=== PATIENT | female | born 1930 | race Two or more races ===

== ENCOUNTER 2018-03-24 18:38 | Observation (INO) | payer OTHER ==
--- NOTE | 2018-03-24 19:50 | EDPHY ---
H & P Stated Complaint: difficulty moving L leg since yesterday Time Seen by Provider: 03/24/18 18:54 HPI/ROS: CHIEF COMPLAINT: Left leg weakness HISTORY OF PRESENT ILLNESS: The patient presents to the emergency department with complaints of left leg weakness for the past day. She reportedly developed symptoms last night. She denies any paresthesias. She denies any complaints of low back pain. She reports similar episode 5 months ago in [place] which was simply treated with an IM injection into her gluteal area. The patient denies prior history of back surgery. She denies any headache, vision loss, dysarthria, speech difficulties, facial weakness or upper extremity weakness. REVIEW OF SYSTEMS: A comprehensive 10 point review of systems is otherwise negative aside from elements mentioned in the history of present illness. Source: Patient - Personal History Current Tetanus/Diphtheria Vaccine: No Current Tetanus Diphtheria and Acellular Pertussis (TDAP): No - Medical/Surgical History Hx Asthma: No Hx Chronic Respiratory Disease: No Hx Diabetes: No Hx Cardiac Disease: No Hx Renal Disease: No Hx Cirrhosis: No Hx Alcoholism: No Hx HIV/AIDS: No Hx Splenectomy or Spleen Trauma: No Other PMH: osteop - Social History Smoking Status: Never smoked - Physical Exam Exam: General Appearance: Elderly female, no acute distress Eyes: Pupils equal and round no pallor or injection ENT, Mouth: Mucous membranes moist Respiratory: There are no retractions, lungs are clear to auscultation Cardiovascular: Regular rate and rhythm Gastrointestinal: Abdomen is soft and nontender, no masses, bowel sounds normal Neurological: Alert and oriented x4, 5/5 strength noted throughout with the exception of her left hip which demonstrates 3/5 weakness with flexion. Skin: Warm and dry, no rashes Musculoskeletal: Neck is supple nontender Extremities: symmetrical, full range of motion Psychiatric: Patient is oriented X 3, there is no agitation Constitutional: Initial Vital Signs Temperature (C) 36.7 C 03/24/18 18:55 Heart Rate 81 03/24/18 18:55 Respiratory Rate 16 03/24/18 18:55 Blood Pressure 170/88 H 03/24/18 18:55 O2 Sat (%) 91 L 03/24/18 18:55 O2 Delivery Mode Room Air Allergies/Adverse Reactions: No Known Allergies Allergy (Unverified 03/24/18 18:54) Home Medications: Medication Instructions Recorded NK [No Known Home Meds] 03/24/18 Medical Decision Making ED Course/Re-evaluation: The patient presents to the ED after she developed acute weakness involving her left leg at 12 o'clock in the evening. She has a prior history of the symptoms 5 months ago which resolved with pain medications. Patient was noted to have weakness with her left hip flexors. The remainder of her neurologic examination was unremarkable. The patient will undergo an MRI of her lumbar spine for evaluation of her left leg weakness. The patient will be turned over to Dr. Naveen Stevens at 9:00 p.m. pending that study. Differential Diagnosis: Differential diagnosis considered includes sciatica, lumbar disc herniation, peripheral neuropathy Departure - Departure Referrals: NONE *PRIMARY CARE P,. [Primary Care Provider] - As per Instructions
[2018-03-24] MEDS ORDERED: methylPREDNISolone SOD SUCC 125 MG/2 ML VIAL IVP ONE (21:20)
[2018-03-24] MEDS ORDERED: ACETAMINOPHEN 325 MG TAB PO PRN (21:57)
[2018-03-24] MEDS ORDERED: ONDANSETRON 4 MG/2 ML VIAL IVP PRN (21:57)
[2018-03-24] MEDS ORDERED: ONDANSETRON DISINTEGRATING 4 MG TAB PO PRN (21:57)
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
[2018-03-24] MEDS ORDERED: hydrALAZINE 25 MG TAB PO PRN (23:16)
[2018-03-25] MEDS ORDERED: PNEUMOC 13-VAL CONJ-DIP CRM/PF 0.5 ML SYR IM ONE (00:30)
[2018-03-25 05:13] LABS: PLATELET COUNT 195 10^3/uL (150-400)
--- NOTE | 2018-03-25 08:35 | HOSPPROG ---
Hospitalist Progress Note Assessment/Plan: Patient is an 87 yo F w/ hx of osteoporosis presents with L leg weakness. Today is my first encounter w the patient, chart reviewed. *left leg weakness -MRI shows significant stenosis on multi-levels -PT and OT -hx of spine surgeries -she is ambulating well in the room, says she is feeling much better *htn -uncontrolled -add amlodipine *osteoporosis *plan: await for PT and OT to see Subjective: Reny said she is feeling fine (met w her via the associate professor of biblical studies) Objective: Vital Signs Temp Pulse Resp BP Pulse Ox 36.6 C 96 14 180/103 H 94 03/25/18 07:35 03/25/18 07:35 03/25/18 07:35 03/25/18 07:35 03/25/18 07:35 Laboratory Results 03/25/18 04:29 03/25/18 04:29 03/24/18 03/25/18 03/26/18 05:59 05:59 05:59 Intake Total 250 Output Total 600 Balance -350 - Physical Exam Constitutional: no apparent distress, appears nourished, not in pain Eyes: PERRL Ears, Nose, Mouth, Throat: hearing normal Cardiovascular: regular rate and rhythym Respiratory: no respiratory distress Gastrointestinal: normoactive bowel sounds Skin: warm Musculoskeletal: generalized weakness Neurologic: AAOx3 Psychiatric: interacting appropriately ICD10 Worksheet Patient Problems: Problems Problem Status Onset Left leg weakness Acute - ICD10 Problem Qualifiers (1) Left leg weakness
[2018-03-25] MEDS ORDERED: HEPARIN 5,000 UNIT/0.5 ML INJ SC SCH (09:00)
[2018-03-25 15:08] VITALS: BP 127/68
--- NOTE | 2018-03-25 16:01 | ASMTLACE ---
LACE Length of stay for Answers: 1 day current admission Acuity / Level of Answers: No Care: Did the patient have an inpatient admission? Comorbidities - select Answers: Other Notes: osteoporosis all that apply # of Emergency department Answers: 1-2 visits in the last 6 months Score: 3 Date Signed: 03/25/2018 04:00 PM Electronically Signed By:Delores Sevilla RN
--- NOTE | 2018-03-25 16:07 | ASMTCMCOM ---
CM Note CM Note Notes: Spoke w/pt and family, PT/OT recommend home care. Family agreeable, CM called and spoke w/Sarah at [facility] who can accept and will provide a motion picture narrator to assist. Pt lives with dtr Megan and son. DC Plan: Homecare/[facility] (PT/OT) Date Signed: 03/25/2018 04:06 PM Electronically Signed By:Delores Sevilla RN
--- NOTE | 2018-03-25 16:22 | ASMTDCNOTE ---
Case Management Discharge Discharge Order Complete? Answers: Yes Patient to Obtain Answers: Independently Medications Transportation Arranged Answers: Family/Friends Family Notified Answers: Yes Discharge Comments Notes: D/w GIS PROGRAMMER, final orders faxed. Sarah at [facility] notified and is working on getting an envelope sealer, RN to call report. Date Signed: 03/25/2018 04:21 PM Electronically Signed By:Delores Sevilla RN
--- NOTE | 2018-03-25 16:25 | PDIAF ---
- Diagnosis Diagnosis: left leg weakness Code Status: Full Code - Medication Management Discharge Medications: Medications to Continue on Transfer Acetaminophen [Tylenol 325mg (*)] 650 mg PO Q4HRS PRN tab 03/25/18 [Last Taken Unknown] Acido Alendronico 70 mg PO SA@0600 03/25/18 [Last Taken 03/20/18] Aspirin [Aspirin 81mg (*)] 81 mg PO DAILY@03/25/18 [Last Taken 03/24/18] Caltrate 600+D 1 tab PO DAILY 03/25/18 [Last Taken Unknown] Kriadex 0.5 mg PO HS 03/25/18 [Last Taken Unknown] Pregabalina 75 mg PO HS 03/25/18 [Last Taken Unknown] Super B Complex With Folic & C 1 tab PO DAILY@03/25/18 [Last Taken Unknown] amLODIPine BESYLATE [Norvasc 2.5 mg (*)] 2.5 mg PO DAILY #30 tab 03/25/18 [Last Taken Unknown] Discharge Medications: Refer to the Discharge Home Medication list for PRN reason. - Orders Services needed: Home Care, Physical Therapy, Occupational Therapy Home Care Face to Face: I certify that this patient was under my care and that I had the required [id number] encounter meeting the encounter requirements on the discharge day. My findings support the fact that the patient is homebound as defined in Home Care Face to Face Continued: CMS Chapter 7 Medicare Benefits Manual 30.1.1 , The condition of the patient is such that there exists a normal inability to leave home and consequently, leaving home would require a considerable and taxing effort. Diet Recommendation: no restrictions on diet Diet Texture: Regular Texture Diet Additional Instructions: your prescription for Amlodipine was sent to [facility] on follow up with your doctor in regards to your back and high blood pressure if you develop any incontinence of urine or stool; return to the ER home care will f/u with you Curry receta para Amlodipine se digna a [facility] en . Marilee de seguimiento con curry a eso de tu espalda y presion дмитрий. Si desarollas incontenencia de orina u excremento; regresar a la donna de Emergencia. Atencion domiciliaria haran seguimiento con usted. - Follow Up Care Current Providers and Referrals: NONE *PRIMARY CARE P,. [Primary Care Provider] - As per Instructions [facility],. [Clinic] -
--- NOTE | 2018-03-25 17:07 | GDS ---
[f rep st] DISCHARGE SUMMARY DISCHARGE DIAGNOSES: 1. Left leg weakness. 2. Hypertension. 3. Osteoporosis. HISTORY OF PRESENT ILLNESS: Briefly, the patient is an 87-year-old female who presented with left leg weakness. She had a lumbar spine MRI performed that showed severe acquired central canal stenosis at L3-L4 with right neural foraminal stenosis. She has [id number] acquired central canal stenosis at L5-S1 with left neural foraminal stenosis. She has a small extended disk herniation extending superiorly from L1-L2 with a mild mass effect on the ventral thecal sac, and she has remote compression fractures of T12, L2, and L3 vertebral bodies. She was seen and evaluated by Physical therapy. Her left leg weakness went away. The patient does not at this time want any type of surgical intervention. I shared with the family and the patient that she may be a candidate for steroid injection, but she is feeling markedly better and would like to be discharged home. HOSPITAL COURSE: 1. Left leg weakness. She was seen and evaluated by Physical Therapy who recommended she have home care. This has been ordered. Recommend they can consider further evaluation if she starts having weakness again. She has a history of spine surgeries and would prefer to avoid any surgical interventions. 2. Hypertension. This has been uncontrolled. She has been started on amlodipine with good results. I have recommended that she follow up with her doctor at [facility]. 3. Osteoporosis. To continue her supplementation at home as she is done. DISCHARGE CONDITION: Stable. Blood pressure is 127/68, heart rate of 93, respiratory rate of 14, O2 sats on room air 92%, temperature is 36.9 Celsius. DISCHARGE MEDICATIONS: Please see the EMR. DISCHARGE INSTRUCTIONS: 1. To continue her amlodipine. 2. Follow up with her doctor in regard to her back and high blood pressure. 3. If she develops any incontinence of urine or stool, return to the ER. 4. Home Care will follow up with her. 5. Of note, all of her discharge summary notes were translated to Citizen [place]. /[id number]/MODL MTDD
[2018-03-26] MEDS ORDERED: amLODIPine BESYLATE 5 MG TAB PO SCH (09:00)
--- NOTE | 2018-03-26 10:51 | ASDISCHSUM ---
Discharge Information Plan Status:Home with Home Health Medically Cleared to Leave: Discharge Date:03/25/2018 05:18 PM D/C Disposition:Home Health Service ADT D/C Disposition:Home, Routine, Self-Care Projected Discharge Date:03/25/2018 11:00 AM Transportation at D/C:Family Discharge Delay Reason: Follow-Up Date:03/25/2018 11:00 AM Discharge Slot: Final Diagnosis: Placement Information Referral Type:*Home Health Care Services Referral ID:[id number] Provider Name:[facility] Address 1:[address] Address 2: City:[place] Selection Factors: State:[place] Patient Contact Information Contact Name:RUSSELL Relationship:Daughter Address:[address] [place] [address] Work Phone: [facility] Alternate Phone: State/Zip Code:[place] [address] Email: Financial Information Financial Class:Medicare Primary Plan Desc:MEDICARE OUTPATIENT Primary Plan Number:[id number] Secondary Plan Desc: Secondary Plan Number: Assessment Information LACE LACE Length of stay for Answers: 1 day current admission Acuity / Level of Answers: No Care: Did the patient have an inpatient admission? Comorbidities - select Answers: Other Notes: osteoporosis all that apply # of Emergency department Answers: 1-2 visits in the last 6 months Score: 3 Date Signed: 03/25/2018 04:00 PM Electronically Signed By:Delores Sevilla RN [facility] Progress Note CM Note CM Note Notes: Spoke w/pt and family, PT/OT recommend home care. Family agreeable, CM called and spoke w/Sarah at [facility] who can accept and will provide a associate field service engineer to assist. Pt lives with dtr Megan and son. DC Plan: Homecare/[facility] (PT/OT) Date Signed: 03/25/2018 04:06 PM Electronically Signed By:Delores Sevilla RN Case Management Discharge Plan Note Case Management Discharge Discharge Order Complete? 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 Sarah at [facility] notified and is working on getting an interpreter and translator, HETAL to call report. Date Signed: 03/25/2018 04:21 PM Electronically Signed By:Delores Sevilla RN Intervention Information Intervention Type:DENT-Refused Date of Service:03/25/2018 10:20 AM Patient Type:Observation Staff Member:Christine Ratliff Hours: Discipline: Severity: Comment:Using the help of the [place] interpre agusto, the patient stated she did not have a secondary insurance - Only her Part A & B Medicare. Since she is under observation status, I explained she is responsible for 20% of her medical services. Reny wished to not sign the Medicare form at this time. She asked that I leave a copy for her daughter.
--- NOTE | 2018-03-26 16:00 | CPEKG ---
Test Reason : OPEN Blood Pressure : / mmHG Vent. Rate : 088 BPM Atrial Rate : 087 BPM P-R Int : 158 ms QRS Dur : 069 ms QT Int : 362 ms P-R-T Axes : 046 -16 032 degrees QTc Int : 438 ms Sinus rhythm Borderline left axis deviation Abnormal R-wave progression, early transition Confirmed by Deep Milan ([id number]) on 03/26/2018 4:00:39 PM Referred By: Confirmed By:Deep Milan
== END 2018-03-25 17:18 | disposition home health service (06) ==
LOC: EDBD 21:32 → F3E 22:48
PROVIDERS: ADMIT Internal Medicine; ATTEND Internal Medicine
DX: M48.061 Spinal stenosis, lumbar region without neurogenic claudication (principal); M62.81 Muscle weakness (generalized); I10 Essential (primary) hypertension; M81.0 Age-related osteoporosis without current pathological fracture
CPT/HCPCS: 72148; 90471; 93005; 96372; 96374; 97116; 97161; 97165; 97535; 99285; G0378; G8978; G8979; G8980; G8987; G8988; J1644; J2930

== ENCOUNTER 2018-04-05 10:57 | Observation (INO) | payer OTHER ==
--- NOTE | 2018-04-05 12:16 | EDPHY ---
H & P Time Seen by Provider: 04/05/18 11:48 HPI/ROS: CHIEF COMPLAINT: Left leg pain and weakness HISTORY OF PRESENT ILLNESS: Patient was admitted to the hospital from 03/24- of this year MRI showing spinal stenosis at L3-4 as well as left-sided disc herniation. She did well without intervention but her symptoms recurred last night and this morning. She complains of pain and weakness in her left foot and leg which is severe in any position which is not supine. She can't walk today. Not associated with incontinence or bowel or bladder symptoms or fever or chills. No fall injury or trauma. REVIEW OF SYSTEMS: Eye: no change in vision ENT: no sore throat Cardiac: no chest pain or syncope Pulmonary: no cough or SOB Abdomen: no vomiting, diarrhea, abdominal pain Musculoskeletal: Back pain with standing Skin: no rash Neuro: As in the HPI Constitutional: no fever : no urinary symptoms A comprehensive 10 point review of systems is otherwise negative aside from elements mentioned in the history of present illness. PAST MEDICAL HISTORY: Osteoporosis and spinal stenosis Social history: Here with her daughter and granddaughter, who is primarily [place]-speaking, history with hand model Judith Thrasher in the room personally. General Appearance: Alert and conversant, cooperative. Eyes: No scleral icterus. ENT, Mouth: Normal mucous membranes. Respiratory: Normal respiratory effort, breath sounds equal, lungs are clear to auscultation. Cardiovascular: Regular rate and rhythm. Gastrointestinal: Abdomen is soft and non tender. Neurological: Alert, face symmetric. She has downgoing toes bilaterally. 2+ right reflex patella and 1+ left. No clonus. Straight leg raising on the left leg causes pain with any elevation. She has 5/ 5 plantar flexion and 4+ out of 5 dorsiflexion on the left foot. Skin: Some darker skin or ecchymosis over the dorsum of the left foot but no bony tenderness and no blisters eschar warmth or lymphangitis. Musculoskeletal: No peripheral edema. Psychiatric: Not agitated. Emergency Department course/MDM: Worsening left leg weakness and pain with spinal stenosis, requires admission, consideration for steroid injection or Neurosurgery consultation. Smoking Status: Never smoked Constitutional: Initial Vital Signs Temperature (C) 36.9 C 04/05/18 11:07 Heart Rate 80 04/05/18 11:07 Respiratory Rate 18 04/05/18 11:07 Blood Pressure 117/70 04/05/18 11:07 O2 Sat (%) 93 04/05/18 11:07 O2 Delivery Mode Room Air Allergies/Adverse Reactions: No Known Allergies Allergy (Verified 04/05/18 13:48) Home Medications: Medication Instructions Recorded Acetaminophen [Tylenol 325mg (*)] 650 mg PO Q4HRS PRN tab 03/25/18 Acido Alendronico 70 mg PO SA@0600 03/25/18 Aspirin [Aspirin 81mg (*)] 81 mg PO DAILY@03/25/18 Caltrate 600+D 1 tab PO DAILY 03/25/18 Kriadex 0.5 mg PO HS 03/25/18 Pregabalina 75 mg PO HS 03/25/18 Super B Complex With Folic & C 1 tab PO DAILY@03/25/18 amLODIPine BESYLATE [Norvasc 2.5 2.5 mg PO DAILY #30 tab 03/25/18 mg (*)] Medical Decision Making Consult/Admit Bed Type: [place] [id number] - Data Points Laboratory Results: Laboratory Results 04/05/18 12:30 04/05/18 12:30 04/05/18 04/05/18 04/05/18 12:30 12:30 12:30 WBC 6.00 10^3/uL 10^3/uL (3.80-9.50) RBC 3.94 10^6/uL L 10^6/uL (4.18-5.33) Hgb 12.8 g/dL g/dL (12.6-16.3) Hct 38.2 % % (38.0-47.0) MCV 97.0 fL fL (81.5-99.8) MCH 32.5 pg pg (27.9-34.1) MCHC 33.5 g/dL g/dL (32.4-36.7) RDW 14.1 % % (11.5-15.2) Plt Count 227 10^3/uL 10^3/uL (150-400) MPV 9.4 fL fL (8.7-11.7) Neut % (Auto) 59.0 % % (39.3-74.2) Lymph % (Auto) 30.2 % % (15.0-45.0) [place] % (Auto) 8.2 % % (4.5-13.0) Eos % (Auto) 2.0 % % (0.6-7.6) Baso % (Auto) 0.3 % % (0.3-1.7) Nucleat RBC Rel Count 0.0 % % (0.0-0.2) Absolute Neuts (auto) 3.54 10^3/uL 10^3/uL (1.70-6.50) Absolute Lymphs (auto) 1.81 10^3/uL 10^3/uL (1.00-3.00) Absolute Monos (auto) 0.49 10^3/uL 10^3/uL (0.30-0.80) Absolute Eos (auto) 0.12 10^3/uL 10^3/uL (0.03-0.40) Absolute Basos (auto) 0.02 10^3/uL 10^3/uL (0.02-0.10) Absolute Nucleated RBC 0.00 10^3/uL 10^3/uL (0-0.01) Immature Gran % 0.3 % % (0.0-1.1) Immature Gran # 0.02 10^3/uL 10^3/uL (0.00-0.10) PT 13.0 SEC SEC (12.0-15.0) INR 0.96 (0.83-1.16) APTT 26.1 SEC SEC (23.0-38.0) Sodium 139 mEq/L mEq/L (135-145) Potassium 4.2 mEq/L mEq/L (3.3-5.0) Chloride 107 mEq/L mEq/L (97-110) Carbon Dioxide 27 mEq/l mEq/l (22-31) Anion Gap 5 mEq/L L mEq/L (8-16) BUN 27 mg/dL H mg/dL (7-23) Creatinine 0.6 mg/dL mg/dL (0.6-1.0) Estimated GFR > 60 Glucose 129 mg/dL H mg/dL (70-100) Calcium 8.6 mg/dL mg/dL (8.5-10.4) Departure - Departure Disposition: [facility] In[facility] Acute Clinical Impression: Left leg weakness Spinal stenosis Qualifiers: Spinal region: unspecified Qualified Code(s): M48.00 - Spinal stenosis, site unspecified Condition: Fair
[2018-04-05 12:39] LABS: PLATELET COUNT 227 10^3/uL (150-400)
[2018-04-05 12:46] LABS: INR 0.96 (0.83-1.16)
[2018-04-05] MEDS ORDERED: IBUPROFEN 200 MG TAB PO PRN (14:03)
[2018-04-05] MEDS ORDERED: ACETAMINOPHEN 325 MG TAB PO PRN (14:03)
[2018-04-05] MEDS ORDERED: ONDANSETRON 4 MG/2 ML VIAL IVP PRN (14:03)
[2018-04-05] MEDS ORDERED: ONDANSETRON DISINTEGRATING 4 MG TAB PO PRN (14:03)
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
[2018-04-05] MEDS ORDERED: PREGABALIN 75 MG CAP PO SCH (21:00)
[2018-04-05] MEDS ORDERED: clonazePAM 0.5 MG TAB PO SCH (21:00)
[2018-04-06] MEDS ORDERED: ENOXAPARIN 40 MG/0.4 ML SYR SC SCH (09:00)
[2018-04-06] MEDS ORDERED: CALCIUM CARB W/VIT D 500 MG TAB PO SCH (09:00)
--- NOTE | 2018-04-06 12:57 | ASMTCASEMG ---
Living Arrangements What is your living Answers: With Child(wong) arrangement? Who do you live with? Type Of Residence What kind of residence do Answers: House you live in? Discharge Plan Comments Coordination Status Comments Notes: Cm spoke to HETAL Bowers regarding d/c POC. Pt is a 87 y/o female admitted for left leg weakness and spinal stenosis. Pt will be getting a spinal injection at some point today. Therapies have been ordered and awaiting recommendations. Needs are TBD at this time. CM to follow. Plan: TBD Date Signed: 04/06/2018 12:56 PM Electronically Signed By:JANNETH Moscoso
[2018-04-06] MEDS ORDERED: TRIAMCINOLONE ACETONIDE 200 MG/5 ML MDV IM ONE (13:51)
[2018-04-06] MEDS ORDERED: IOPAMIDOL (ISOVUE-M 300) 15 ML VIAL ONE (13:51)
[2018-04-06] MEDS ORDERED: MIDAZOLAM 2 MG/2 ML VIAL IVP PRN (14:37)
[2018-04-06] MEDS ORDERED: NALOXONE HCL 0.4 MG/ML INJ IVP PRN (14:37)
[2018-04-06] MEDS ORDERED: MEPERIDINE 25 MG/ML SYR IVP PRN (14:37)
[2018-04-06] MEDS ORDERED: FLUMAZENIL 0.5 MG/5 ML MDV IVP PRN (14:37)
[2018-04-06] MEDS ORDERED: fentaNYL 100 MCG/2 ML INJ IVP PRN (14:37)
[2018-04-06] MEDS ORDERED: MIDAZOLAM 2 MG/2 ML VIAL ONE (14:41)
[2018-04-06] MEDS ORDERED: fentaNYL 100 MCG/2 ML INJ ONE (14:41)
[2018-04-06] MEDS ORDERED: NS 1,000 ML IV SCH (14:45)
[2018-04-06] MEDS ORDERED: LIDOCAINE 1% 300 MG/30 ML SDV ONE (14:53)
--- NOTE | 2018-04-06 15:11 | PDPROPOC ---
Sedation Plan of Care Sedation Plan of Care: vital signs stable, mental status noted, patient educated of risks, benefits, alternatives, patient can tolerate sedation ASA Classification: ASA 2 Planned drugs: fentanyl, midazolam Mallampati Score: Class 2 Mallampati Reference Image: Patient passed 3-3-2 rule?: Yes
--- NOTE | 2018-04-06 15:12 | PDRADPN ---
Radiology Procedure Note Date of Procedure: 04/06/18 Radiologist: Surekha Saeed Anesthesia: IV Sedation Pre-op Diagnosis: BACK PAIN Post-op Diagnosis: SAME Indication: SEVERE SPINAL CANAL STENOSIS Procedure: L4-5 ESCOBAR Inf/Abcess present in the surg proc area at time of surgery?: No
[2018-04-06 16:07] VITALS: BP 125/92
--- NOTE | 2018-04-07 13:00 | PDDCSUM ---
Discharge Summary Discharge Summary: Date of Admission: 04/05/2018 Date of Discharge: 04/06/2018 Consultants: interventional radiology Procedures: epidural spinal injection at L4-5 Discharge Diagnoses: 1. Acute exacerbation of left leg pain and weakness, related to 2. Severe spinal stenosis 3. Osteoporosis 4. HTN Brief Hospital Course: 87yo F with a history of osteoporosis and recent observation admission at this hospital for management of left leg pain/weakness due to spinal stenosis that was managed with oral steroids presented again with acute worsening of left leg pain/weakness and lower back pain. L-spine MRI last admission showed multilevel severe lumbosacral spinal stenosis. Her exam was consistent with weakness/ limited mobility due to severe pain. She was amenable to ESCOBAR and underwent injection of L4-5 with IR. Her symptoms resolved and she had minimal pain and full LLE strength on day of discharge. PT/OT saw her last admission and recommended home with walker, which she has with her. Advised to trial acetaminophen in addition to her home pregabalin for pain control. She is not interested in surgical management. She is on a bisphosphonate for her osteoporosis. Medications: Please refer to EMR. Changes this admission include holding aspirin for 5 days after procedure, otherwise no changes. Follow Up Plan: 1. PCP clinic visit later this week. Consider prescribing prednisone to have on- hand for acute back/leg pain crises. She seems to respond to steroid therapy and this may prevent her from being hospitalized. Physical Exam: Vitals reviewed, normotensive. Alert and oriented. RRR without murmurs on cardiac exam. Lungs clear. Abdomen soft. 5/5 strength in bilateral proximal and distal lower extremities. 1+ bilateral patellar reflexes. No ankle clonus. Down-going toes bilaterally. Sensation to light touch intact in feet.
== END 2018-04-06 18:15 | disposition home or self-care (01) ==
LOC: INTOOBSV 12:44 → F3E 14:19
PROVIDERS: ADMIT Internal Medicine; ATTEND Internal Medicine
DX: M48.061 Spinal stenosis, lumbar region without neurogenic claudication (principal); M62.81 Muscle weakness (generalized); M48.07 Spinal stenosis, lumbosacral region; M51.16 Intervertebral disc disorders with radiculopathy, lumbar region; I10 Essential (primary) hypertension; M81.0 Age-related osteoporosis without current pathological fracture; Z23 Encounter for immunization
CPT/HCPCS: 62323; 90686; 96374; 96375; 99152; 99285; G0008; G0378; J2250; J3010; J3301; Q9967; J1650

== ENCOUNTER 2018-05-02 10:59 | Emergency (ER) | payer OTHER ==
[2018-05-02 11:18] VITALS: BP 150/77
--- NOTE | 2018-05-02 11:58 | EDPHY ---
H & P Stated Complaint: cough, runny nose, high blood pressure Time Seen by Provider: 05/02/18 11:44 HPI/ROS: CHIEF COMPLAINT: Cough, high blood pressure. HISTORY OF PRESENT ILLNESS: The patient is a Kittitian-speaking 87 y/o female arriving with her daughter complaining of a cough and high blood pressure. She developed a cough and cold symptoms yesterday that have been worsening today. She measured her blood pressure at home and found it to be around 170 and became scared. On she was taken off her blood pressure medications. Her daughter has noticed it looks like she's having a hard time breathing at home. Her daughter has been administering DayQuil for symptoms. Patient denies shortness of breath, sore throat, vomiting, diarrhea, headache, abdominal pain, fever. Her flu vaccination is up-to-date. 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 REVIEW OF SYSTEMS: A comprehensive 10 system review of systems is otherwise negative aside from elements mentioned in the history of present illness and medical decision making. Past medical history: osteoporosis, lumbar stenosis, L1-L2 herniation, prior history of pneumonia. Past surgical history: Spinal surgery Family history: Noncontributory Social history: Kittitian-speaking. Daughter at bedside. No tobacco use. PCP: [facility]. Adult Physical: General Appearance: Alert, no acute distress. BP 141/83 Eyes: Pupils equal and round, no conjunctival injection, no discharge. ENT, Mouth: Mucous membranes are moist, no oropharyngeal erythema or edema. No nasal mucosa edema. No sinus drainage. No sinus tenderness. Neck: No lymphadenopathy, supple. Respiratory: Lungs are clear to auscultation; no wheezes, rales, or rhonchi. Cardiovascular: Regular rate and rhythm; no murmur, rub, or gallop. Gastrointestinal: Abdomen is soft and non tender, no masses or organomegaly. Skin: Warm and dry, no rashes, normal color. Back: Nontender to palpation over the thoracolumbar spine. Extremities: No lower extremity edema, no calf tenderness or swelling. Neurological: Alert and oriented. Moving all four extremities easily and equally. Psychiatric: Normal affect. - Personal History Current Tetanus Diphtheria and Acellular Pertussis (TDAP): Yes - Medical/Surgical History Hx Asthma: No Hx Chronic Respiratory Disease: No Hx Diabetes: No Hx Cardiac Disease: No Hx Renal Disease: No Hx Cirrhosis: No Hx Alcoholism: No Hx HIV/AIDS: No Hx Splenectomy or Spleen Trauma: No Other PMH: osteop, HTN - Social History Smoking Status: Never smoked Constitutional: Initial Vital Signs Temperature (C) 36.3 C 05/02/18 11:11 Heart Rate 93 05/02/18 11:11 Respiratory Rate 16 05/02/18 11:11 Blood Pressure 150/77 H 05/02/18 11:11 O2 Sat (%) 90 L 05/02/18 11:11 O2 Delivery Mode Room Air Allergies/Adverse Reactions: No Known Allergies Allergy (Verified 04/05/18 13:48) Home Medications: Medication Instructions Recorded Acetaminophen [Tylenol 325mg (*)] 650 mg PO Q4HRS PRN tab 03/25/18 Vitamin C 05/02/18 Medical Decision Making ED Course/Re-evaluation: This is an 87 y/o female with a history of hypertension who presents with a one- day history of cough and cold symptoms. She is well-appearing on exam with clear lungs bilaterally. She is afebrile and her BP here is in the 140 range systolic. Suspect viral URI. Her pulse ox in triage was 90% but it was in the low to mid 90s at the time of my encounters with her. No evidence for pneumonia. There is nothing in her presentation that makes me suspect sepsis. She is not wheezing. Plan for discharge with standard URI care and follow up instructions. Return precautions discussed. She and her daughter are comfortable with this plan. She was reassured about the blood pressure readings. We discussed measuring recording her blood pressures so that her primary care physician can see how she is doing without antihypertensive medication. She does not have any signs or symptoms of end-organ dysfunction related to hypertension. Differential Diagnosis: I considered a differential diagnosis of her respiratory symptoms that includes but is not limited to pneumonia, reactive airway disease, viral URI, influenza, CHF. Departure - Departure Disposition: Home, Routine, Self-Care Clinical Impression: Upper respiratory infection Qualifiers: URI type: unspecified viral URI Qualified Code(s): J06.9 - Acute upper respiratory infection, unspecified Condition: Good Instructions: Upper Respiratory Infection (ED) Additional Instructions: 1. Continue [id number] remedies as directed on the packaging. Be careful to watch total Tylenol (acetaminophen) dosing as this is present in many over- the-counter medications such as DayQuil. 2. Follow up with your primary care provider as planned next week. 3. Return to the ED for any worsening of condition. Control De Dolor y Fiebre: Les recomendamos Acetaminofina (Tylenol) y Ibuprofeno (Motrin, Advil) para dolor y control de la fiebre. Cuando la fiebre es дмитрий o el dolor es mahendra, ambas drogas puede ser usadas a la misma vez. Por favor tenga en cuenta la diferencia de horarios en el cual deben ser tomadas. Avila dosis es: Acetaminofina 500mg cada 4-6 horas Ibuprofeno 400mg cada 6-8 horas con comida No tome Acetaminofina con Hydrocodone (Vicodin, Lortab) o Oxycodone (Percocet. Estas medicinas tambien contienen Acetaminofina. No mas de 4000mg de Acetaminofina deben ser tomados en 24 horas. 1. Continue natalio sin receta prince se indica en el empaque. Tenga cuidado de caitlyn la dosis total de Tylenol (acetaminofina) dosificacion ya que esta presente en muchos medicamentos de venta chaka, prince DayQuil. 2. Timmy cheryl de seguimiento con avila doctor primario prince tiene programod la proxima semana. 3. Regrese a la donna de emergencias por cualquier empeoramiento de avila condicion. Referrals: Linda Jeffery PA [Primary Care Provider] - As per Instructions Print Language: Kittitian Report Scribed for: Oly Murray Report Scribed by: Rhonda Ruth Date of Report: 05/02/18 Time of Report: 11:58 Physician Review and Approval Statement: 05/05/18 13:59 Portions of this note were transcribed by the medical science liaison. I, Dr. Oly Murray, personally performed the history, physical exam, and medical decision- making; and confirmed the accuracy of the information in the transcribed note.
== END 2018-05-02 12:08 | disposition home or self-care (01) ==
DX: J06.9 Acute upper respiratory infection, unspecified (principal); I10 Essential (primary) hypertension